=== PATIENT | male | born 1975 | race Caucasian/White ===

== ENCOUNTER 2017-07-11 08:18 | Emergency (ER) | payer BC ==
[~2017-07-11] VITALS: Ht 172.7 cm; Wt 70.3 kg
--- NOTE | 2017-07-11 09:22 | Urgent Treatment Center Report ---
History of Present Issue Date/Time Seen by Provider 07/11/17 0904 Visit Reason Pt arrived:Walked Presenting Problem:PT STATES HIS DAUGHTER SCRATCHED HIS RT EYE LAST NIGHT WITH HER FINGER NAIL PTS EYE IS RED AND IRRITATED, SENSITIVE TO LIGHT. Location if Accident: Onset of symptoms date/time:/ or onset unknown for:MEDICAL HX UNKNOWN Have you (or family members/close friends) recently traveled outside the [place]? N If Yes, where/when: Have you had exposure to infectious disease within the past month? TB? Other? Specify: c/o right eye redness and irritation starting mid day yesterday after 18 month old daughter accidently poked him in his eye with her finger. Irritation primarily lower portion of eye. Light sensitive. pain worse w/ blinking and bright lights. Does not wear glasses or contacts. Last tetanus within the last 2 years. wearing sunglasses helps. no other treatment prior to arrival. Source patient Exam Limitations no limitations ALLERGIES Coded Allergies: No Known Allergies (07/11/17) Home Medications Reported Medications No Known Home Medications History Medical History General CAD? No Angina: No Hypertension? No Hyperlipidemia? No CHF? No DVT? No PE? No COPD? No Asthma? No GERD? No Gastric ulcers? No GI Bleed? No Hernia? No Thyroid Problems? No Hypothyroidism? No CVA? No Seizures? No Diabetes? No Renal Insuffiency? No UTI? No Stones? No GB Disease: No Nephritic Syndrome? No Asplenia? No Sickle Cell Disease? No Arthritis? No Migraines? No Cataracts? No MRSA? No HIV? No TB? No Anxiety? No Depression? No Cancer? No Site: N More? No Immunization HX DT/Tetanus 5-10 Years Ago Surgical Hx Previous Surgery?N Social History Smoking Hx Smoker: Never Smoker Tobacco: No Alcohol Alcohol: No Review of Systems All Other Systems Reviewed and Negative Constitutional denies fever, denies malaise Eyes see HPI, inflammation (mild, top lid, tenderness), denies foreign body sensation , denies vision change Skin denies change in color, denies lesions Psychiatric/Neurological denies headache Physical Exam Vital Signs Vital Signs Date Time Temp Pulse Resp B/P Pulse O2 O2 Flow FiO2 Ox Delivery Rate 07/11 938 97.8 558 16 143/80 98 07/11 858 97.8 558 16 143/80 98 pulse correction, 58. 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 Cardiovascular no peripheral edema Neurologic alert, oriented x 3 Skin normal color, warm/dry Medical Decision Making LABS/Meds/Orders Pt receiving controlled substance in ED? No Results/Orders Current Medication Orders Sig/Grant Start time Last Medication Dose Route Stop Time Status Admin Boric Acid/Sodium 120 ML ONCE ONE 07/11 930 DC 07/11 Borate OP 07/11 931 09 Erythromycin 1 GM ONCE ONE 07/11 930 DC 07/11 OP 07/11 Fluorescein Sodium 1 EACH ONCE ONE 07/11 930 DC 07/11 OP 07/11 Tetracaine HCl See Dose ONCE ONE 07/11 930 DC 07/11 Insts (1) OP 07/11 931 0936 Miscellaneous 0 .STK-MED ONE 07/11 09 DC XX Dose Instructions: (1)Tetracaine HCl: DOSE = 1 - 2 DROPS Consult MD Physician Consult Consult/PCP Dr. Leslie, opthamology Time Called 919 Reason Pt. Condition Comments Dr. Leslie not available. They can see pt tomorrow. Start treatment today. Procedures Eye Procedure Eye Procedure Risks/benefits discussed with pt/guardian? Yes Tetracaine Drops Administered right eye Fluorescein Stick(s) Used right eye Slit lamp exam Yes Eye Irrigated w/ Saline (ccs) 120 Antibiotic Ointment/Drps Admin right eye Progress large horizontal corneal abrasion w/in sclera only, superior to iris, approx 0.25-0.5cm L and 0.75-1cm wide, no FB, no other sign of trauma, no fluorescein streaming; pt declined patch Departure Departure Time of Disposition 919 Disposition DC Home or Self Care(routine) Clinical Impression Primary Impression: Right corneal abrasion Qualifiers: Encounter type: initial encounter Qualified Code: S05.01XA - Injury of conjunctiva and corneal abrasion without foreign body, right eye, initial encounter Condition STABLE Referrals NO REFERRAL Dr. Leslie at [facility]. [address] [facility] [phone]. * *Appt tomorrow, 07/12/17 @ 4:45. Please bring insurance card and photo ID. ER, [facility] for new or worsening symptoms. Patient Instructions DI for Corneal Abrasion Additional Instructions Antibx ointment 4 times a day x 3-5 days Wear sunglasses Do not touch or rub eyes Be sure to follow up with opthamology Discharge Counseling Counseled pt/family regarding diagnosis, test results, medications/RX, home care, follow up needs Prescriptions Current Visit Scripts No Known Home Medications Comments erythromycin opth ointment supplied at 3535
--- NOTE | 2017-07-11 09:22 | Urgent Treatment Center Report ---
History of Present Issue Date/Time Seen by Provider 07/11/17 0904 Visit Reason Pt arrived:Walked Presenting Problem:PT STATES HIS DAUGHTER SCRATCHED HIS RT EYE LAST NIGHT WITH HER FINGER NAIL PTS EYE IS RED AND IRRITATED, SENSITIVE TO LIGHT. Location if Accident: Onset of symptoms date/time:/ or onset unknown for:MEDICAL HX UNKNOWN Have you (or family members/close friends) recently traveled outside the [place]? N If Yes, where/when: Have you had exposure to infectious disease within the past month? TB? Other? Specify: c/o right eye redness and irritation starting mid day yesterday after 18 month old daughter accidently poked him in his eye with her finger. Irritation primarily lower portion of eye. Light sensitive. pain worse w/ blinking and bright lights. Does not wear glasses or contacts. Last tetanus within the last 2 years. wearing sunglasses helps. no other treatment prior to arrival. Source patient Exam Limitations no limitations ALLERGIES Coded Allergies: No Known Allergies (07/11/17) Home Medications Reported Medications No Known Home Medications History Medical History General CAD? No Angina: No Hypertension? No Hyperlipidemia? No CHF? No DVT? No PE? No COPD? No Asthma? No GERD? No Gastric ulcers? No GI Bleed? No Hernia? No Thyroid Problems? No Hypothyroidism? No CVA? No Seizures? No Diabetes? No Renal Insuffiency? No UTI? No Stones? No GB Disease: No Nephritic Syndrome? No Asplenia? No Sickle Cell Disease? No Arthritis? No Migraines? No Cataracts? No MRSA? No HIV? No TB? No Anxiety? No Depression? No Cancer? No Site: N More? No Immunization HX DT/Tetanus 5-10 Years Ago Surgical Hx Previous Surgery?N Social History Smoking Hx Smoker: Never Smoker Tobacco: No Alcohol Alcohol: No Review of Systems All Other Systems Reviewed and Negative Constitutional denies fever, denies malaise Eyes see HPI, inflammation (mild, top lid, tenderness), denies foreign body sensation , denies vision change Skin denies change in color, denies lesions Psychiatric/Neurological denies headache Physical Exam Vital Signs Vital Signs Date Time Temp Pulse Resp B/P Pulse O2 O2 Flow FiO2 Ox Delivery Rate 07/11 938 97.8 558 16 143/80 98 07/11 858 97.8 558 16 143/80 98 pulse correction, 58. 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 Cardiovascular no peripheral edema Neurologic alert, oriented x 3 Skin normal color, warm/dry Medical Decision Making LABS/Meds/Orders Pt receiving controlled substance in ED? No Results/Orders Current Medication Orders Sig/Grant Start time Last Medication Dose Route Stop Time Status Admin Boric Acid/Sodium 120 ML ONCE ONE 07/11 930 DC 07/11 Borate OP 07/11 931 09 Erythromycin 1 GM ONCE ONE 07/11 930 DC 07/11 OP 07/11 Fluorescein Sodium 1 EACH ONCE ONE 07/11 930 DC 07/11 OP 07/11 Tetracaine HCl See Dose ONCE ONE 07/11 930 DC 07/11 Insts (1) OP 07/11 931 0936 Miscellaneous 0 .STK-MED ONE 07/11 09 DC XX Dose Instructions: (1)Tetracaine HCl: DOSE = 1 - 2 DROPS Consult MD Physician Consult Consult/PCP Dr. Leslie, opthamology Time Called 919 Reason Pt. Condition Comments Dr. Leslie not available. They can see pt tomorrow. Start treatment today. Procedures Eye Procedure Eye Procedure Risks/benefits discussed with pt/guardian? Yes Tetracaine Drops Administered right eye Fluorescein Stick(s) Used right eye Slit lamp exam Yes Eye Irrigated w/ Saline (ccs) 120 Antibiotic Ointment/Drps Admin right eye Progress large horizontal corneal abrasion w/in sclera only, superior to iris, approx 0.25-0.5cm L and 0.75-1cm wide, no FB, no other sign of trauma, no fluorescein streaming; pt declined patch Departure Departure Time of Disposition 919 Disposition DC Home or Self Care(routine) Clinical Impression Primary Impression: Right corneal abrasion Qualifiers: Encounter type: initial encounter Qualified Code: S05.01XA - Injury of conjunctiva and corneal abrasion without foreign body, right eye, initial encounter Condition STABLE Referrals NO REFERRAL Dr. Leslie at [facility]. [address] [facility] [phone]. * *Appt tomorrow, 07/12/17 @ 4:45. Please bring insurance card and photo ID. ER, [facility] for new or worsening symptoms. Patient Instructions DI for Corneal Abrasion Additional Instructions Antibx ointment 4 times a day x 3-5 days Wear sunglasses Do not touch or rub eyes Be sure to follow up with opthamology Discharge Counseling Counseled pt/family regarding diagnosis, test results, medications/RX, home care, follow up needs Prescriptions Current Visit Scripts No Known Home Medications Comments erythromycin opth ointment supplied at 4814
[2017-07-11 09:38] VITALS: BP 143/80
== END 2017-07-11 09:39 | disposition home or self-care (01) ==
LOC: UTC 08:18
PROC: 3E1CX8Z Irrigation of Eye using Irrigating Substance (ICD-10-PCS; principal; 2017-07-11)
DX: S05.01XA Injury of conjunctiva and corneal abrasion without foreign body, right eye, initial encounter (principal); W50.4XXA Accidental scratch by another person, initial encounter; Y92.009 Unspecified place in unspecified non-institutional (private) residence as the place of occurrence of the external cause